=== PATIENT | female | born 1970 | race Caucasian/White ===

== ENCOUNTER 2017-04-12 22:11 | Inpatient (IN) | payer MEDICAID ==
[~2017-04-12] VITALS: Ht 167.6 cm; Wt 63.6 kg
[~2017-04-12 22:11] MED LIST: LURA20TA PO; RISP2 PO; TRAZ-147 PO; VITAD1000 PO
[2017-04-12 22:53] LABS: BASOPHILS # (AUTO) 0.03 K/uL (0.00-0.20); BASOPHILS % (AUTO) 0.3 % (0.0-2.0); EOSINOPHILS # (AUTO) 0.08 K/uL (0.00-0.70); HEMOGLOBIN 13.1 g/dL (12.0-16.0); LYMPHOCYTES # (AUTO) 1.8 K/uL (1.0-4.8); MEAN CORPUSCULAR HEMOGLOBIN 31.7 pg (26.0-34.0); MEAN CORPUSCULAR HGB CONC 32.9 G/dL (31.0-37.0); MEAN CORPUSCULAR VOLUME 97 fL (80-100); MONOCYTES # (AUTO) 0.7 K/uL (0.1-1.0); MONOCYTES % (AUTO) 6.6 % (2.0-9.0); NEUTROPHILS # (AUTO) 7.8 K/uL (1.8-7.7); NEUTROPHILS % (AUTO) 75.2 % (40.0-70.0); PLATELET COUNT (AUTO) 297 K/uL (150-450); RED BLOOD CELL COUNT(AUTO) 4.14 MIL/uL (4.00-5.20)
[2017-04-12 23:01] LABS: ANION GAP 11 mmol/L (8-16); CALCIUM, TOTAL 9.6 mg/dL (8.8-10.5); CARBON DIOXIDE 28 mmol/L (22-29); CHLORIDE 99 mmol/L (98-107); CREATININE 0.87 mg/dL (0.60-1.30); GLOMERULAR FILTR. RATE CALC > 60 mL/min (>60); GLUCOSE,RANDOM 151 mg/dL (70-110); POTASSIUM 3.4 mmol/L (3.5-5.1); SODIUM SERUM 138 mmol/L (136-145); UREA NITROGEN, BLOOD 18 mg/dL (7-18)
[2017-04-12 23:07] LABS: ALANINE AMINOTRANSFERASE 58 U/L (12-78); ALBUMIN 4.2 g/dL (3.4-5.0); ALKALINE PHOSPHATASE 102 U/L (46-116); ASPARTATE AMINOTRANSFERASE 49 U/L (15-37); BILIRUBIN,TOTAL 0.5 mg/dL (0.1-1.0); TOTAL PROTEIN, SERUM 8.8 g/dL (6.4-8.2)
[2017-04-12] MEDS ORDERED: ACETAMINOPHEN 500 MG TABLET PO ONE (23:30)
[2017-04-12] MEDS: LORazepam 2 MG TABLET PO PRN (23:37)
[2017-04-12] MEDS: ZOLPIDEM TARTRATE 10 MG TABLET PO PRN (23:38)
[2017-04-12] MEDS: HALOPERIDOL 5 MG TABLET PO PRN (23:38)
[2017-04-13 01:00] VITALS: BP 124/74
[2017-04-13 01:03] VITALS: BP 124/74
[2017-04-13] MEDS ORDERED: INFLUENZA VIRUS VACCINE QVS 2017-18 (3YR+)/PF 60 MCG/0.5 ML SYRINGE IM ONE (01:45)
[2017-04-13] MEDS ORDERED: IBUPROFEN 600 MG TABLET PO PRN (07:15)
[2017-04-13] MEDS ORDERED: ACETAMINOPHEN 325 MG TABLET PO PRN ×2 (07:15→20:15)
[2017-04-13] MEDS: NICOTINE 7 MG/24 HOUR PATCH TD SCH (08:52)
[2017-04-13 16:06] VITALS: BP 109/71
[2017-04-13] MEDS ORDERED: POTASSIUM CHLORIDE 20 MEQ ER TABLET PO ONE (20:00)
[2017-04-13] MEDS: MIRTAZAPINE 15 MG TABLET PO SCH (20:14)
[2017-04-13] MEDS ORDERED: IBUPROFEN 400 MG TABLET PO PRN (20:15)
[2017-04-14 07:15] VITALS: BP 118/89
[2017-04-14] MEDS: ARIPiprazole 10 MG TABLET PO SCH (08:20)
[2017-04-14] MEDS: NICOTINE 7 MG/24 HOUR PATCH TD SCH (08:20)
[2017-04-14 08:46] VITALS: BP 118/76
[2017-04-14 09:32] LABS: CHOL/HDL RATIO 1.6 (3.9-5.7); POTASSIUM 3.7 mmol/L (3.5-5.1); THYROID STIMULATING HORMONE 0.71 uIU/mL (0.36-3.74)
[2017-04-14] MEDS: HALOPERIDOL 5 MG TABLET PO PRN (14:14)
[2017-04-14] MEDS: LORazepam 2 MG TABLET PO PRN (14:14)
[2017-04-14 16:29] VITALS: BP 126/76
[2017-04-14] MEDS: MIRTAZAPINE 15 MG TABLET PO SCH (20:02)
[2017-04-14] MEDS: ZOLPIDEM TARTRATE 10 MG TABLET PO PRN (20:02)
[2017-04-15 06:43] VITALS: BP 121/69
[2017-04-15 08:31] VITALS: BP 138/90
[2017-04-15] MEDS: NICOTINE 7 MG/24 HOUR PATCH TD SCH (08:44)
[2017-04-15] MEDS: ARIPiprazole 10 MG TABLET PO SCH (08:44)
[2017-04-15 16:18] VITALS: BP 103/63
[2017-04-15] MEDS: LORazepam 2 MG TABLET PO PRN (16:47)
[2017-04-15] MEDS: MIRTAZAPINE 15 MG TABLET PO SCH (20:12)
[2017-04-16] MEDS: ARIPiprazole 10 MG TABLET PO SCH (07:58)
[2017-04-16] MEDS: NICOTINE 7 MG/24 HOUR PATCH TD SCH (07:58)
[2017-04-16 08:10] VITALS: BP 124/78
[2017-04-16] MEDS ORDERED: MIRT15 PO ×2 (15:29→15:46)
[2017-04-16] MEDS ORDERED: NALT50TA PO (15:29)
[2017-04-16] MEDS ORDERED: ARIP10TA8 PO ×2 (15:29→15:46)
[2017-04-16] MEDS ORDERED: NALT50TA6 PO (15:46)
[2017-04-17] MEDS ORDERED: NALTREXONE HCL 50 MG TABLET PO SCH (09:00)
== END 2017-04-16 16:25 | disposition home or self-care (01) | DRG 751 ==
LOC: EMS 22:12 → B3A 23:30 → EMS 04-13 00:30
PROVIDERS: ADMIT Psychiatry & Neurology Psychiatry; ATTEND Psychiatry & Neurology Psychiatry
DX: F33.3 Major depressive disorder, recurrent, severe with psychotic symptoms (principal); R45.851 Suicidal ideations; Z91.14 Patient's other noncompliance with medication regimen; E87.6 Hypokalemia; F10.10 Alcohol abuse, uncomplicated; F12.90 Cannabis use, unspecified, uncomplicated; F15.90 Other stimulant use, unspecified, uncomplicated; F41.9 Anxiety disorder, unspecified; G89.29 Other chronic pain; F60.3 Borderline personality disorder; F17.210 Nicotine dependence, cigarettes, uncomplicated; Z59.0 Homelessness
CPT/HCPCS: 83036; 84132; 84443; 90471; 99285; G0480